=== PATIENT | male | born 1980 | race Two or more races ===

== ENCOUNTER 2019-05-25 22:33 | Emergency (ER) | payer MEDICAID, OTHER ==
[~2019-05-25] VITALS: Ht 180.3 cm; Wt 81.6 kg
[2019-05-25 22:52] LABS: Basophils # (auto) 0 uL; Eosinophils # (auto) 0 uL; Eosinophils % (auto) 0.5 % (0.0-7.0); Lymphocytes # (auto) 0.8 uL; Monocytes # (auto) 0.5 uL; Neutrophils # (auto) 5.7 uL
[2019-05-25 22:54] LABS: Basophils % (auto) 0.2 % (0.0-2.0); Hematocrit 40.8 % (41.0-53.0); Hemoglobin 14.5 g/dL (13.5-17.5); Mean Corpuscular Hgb Conc. 35.5 g/dL (32.0-36.0); Mean Corpuscular Volume 101.7 fL (80.0-100.0); Monocytes % (auto) 7.3 % (0.0-12.0); Platelet Count (auto) 123 10^3/uL (140-450); Red Blood Cells 4.01 10^6/uL (4.5-5.90); Red Cell Distribution Width 14.7 % (11.8-14.3); White Blood Cell 7.1 10^3/uL (4.4-10.8)
[2019-05-25 23:10] LABS: Albumin 4.2 g/dL (3.4-5.0); Calcium 9.1 mg/dL (8.5-10.1); Potassium 3.2 mmol/L (3.5-5.1)
[2019-05-25 23:12] LABS: Bilirubin, Total 0.5 mg/dL (0.2-1.0); Total Protein 7.9 g/dL (6.4-8.2)
[2019-05-25 23:22] LABS: INR 1.14 (0.9-1.15); Partial Thromboplastin Time 27.7 sec (23.64-32.05)
[2019-05-25] MEDS ORDERED: DEXTROSE (50%) 50ML SYRG IV ONE (23:30)
[2019-05-25] MEDS ORDERED: DEXTROSE 50% SYRINGE 50 ML IV ONE (23:37)
[2019-05-26 02:20] VITALS: BP 155/100
== END 2019-05-26 02:49 | disposition home or self-care (01) ==
LOC: EDBD 22:33 → ER 22:37
DX: E11.641 Type 2 diabetes mellitus with hypoglycemia with coma (principal)
CPT/HCPCS: 36415; 80053; 82962; 85025; 85610; 85730; 99283; J7042